=== PATIENT | male | born 1950 | race Caucasian/White ===

== ENCOUNTER 2016-12-19 11:20 | Day surgery (SDC) | payer MEDICARE ==
[~2016-12-19] VITALS: Ht 182.9 cm; Wt 100.0 kg
[2016-12-19] VITALS (10 sets, daily range): BP systolic 100–131; BP diastolic 69–78; PULSE 68–77; TEMP 97.9
[2016-12-19 12:22] LABS: HEMATOCRIT 42.1 % (42.0-52.0); HEMOGLOBIN 14.6 g/dl (13.5-18.0); MEAN CELL VOLUME 91 fl (80.0-100.0); MEAN CORPUSCULAR HEMOGLOBIN 31 pg (27.0-31.0); MEAN CORPUSCULAR HGB CONC 35 g/dl (33.0-37.0); MEAN PLATELET VOLUME 8.8 fl (7.4-10.4); PLATELET COUNT 176 K/mm3 (130-400); RED BLOOD COUNT 4.65 M/mm3 (4.20-5.60); REDCELL DISTRIBUTION WIDTH-CV 13.2 % (11.5-14.5); WHITE BLOOD COUNT 7.4 K/mm3 (4.8-10.8)
[2016-12-19 12:29] LABS: INR 1.1 (0.8-3.0); PROTHROMBIN TIME 11.9 SECONDS (9.7-12.8)
[2016-12-19 12:31] LABS: CALCIUM 9.4 mg/dL (8.4-10.2); CREATININE, serum 1.06 mg/dL (0.66-1.25); POTASSIUM 4.4 mmol/L (3.4-5.0)
[2016-12-19] MEDS ORDERED: NORVASC 10MG10 MG PO (12:32)
[2016-12-19] MEDS ORDERED: COREG12.5 MG PO (12:33)
[2016-12-19] MEDS ORDERED: CHONDROITIN SU400 MG PO (12:34)
[2016-12-19] MEDS ORDERED: FARXIGA5 PO (12:35)
[2016-12-19] MEDS ORDERED: LASIX 40MG TABL40 MG PO (12:35)
[2016-12-19] MEDS ORDERED: LEVEMIR FLEX100 U/ML SQ ×2 (12:36→12:37)
[2016-12-19] MEDS ORDERED: JANUMET 1000 MG1 TA1 PO (12:37)
[2016-12-19] MEDS ORDERED: L-LYSINE500 M1 PO (12:38)
[2016-12-19] MEDS ORDERED: K-DUR20 MEQ PO (12:39)
[2016-12-19] MEDS ORDERED: PRAVACHOL 20MG20 MG PO (12:39)
[2016-12-19] MEDS ORDERED: DIOVAN320 MG PO (12:40)
[2016-12-19] MEDS ORDERED: MULTI VITAMINS1 TAB PO (12:40)
[2016-12-19] MEDS ORDERED: ASPIRIN 81M81 MG/TA2 PO (12:41)
[2016-12-19] MEDS ORDERED: VITAMIN C500 MG PO (12:41)
== END 2016-12-19 18:33 | disposition home or self-care (01) ==
LOC: EUO 11:20
PROVIDERS: Internal Medicine Cardiovascular Disease
DX: I42.9 Cardiomyopathy, unspecified (principal); I27.2 Other secondary pulmonary hypertension; R06.02 Shortness of breath; R06.00 Dyspnea, unspecified; E11.9 Type 2 diabetes mellitus without complications; Z79.4 Long term (current) use of insulin; Z79.84 Long term (current) use of oral hypoglycemic drugs; E78.5 Hyperlipidemia, unspecified; I10 Essential (primary) hypertension; Z85.9 Personal history of malignant neoplasm, unspecified
CPT/HCPCS: C1760; J2250; J3010; Q9967

== ENCOUNTER 2019-03-25 06:53 | Day surgery (SDC) | payer MEDICARE ==
[2019-03-25] VITALS (16 sets, daily range): BP systolic 108–151; BP diastolic 65–85; PULSE 60–78; TEMP 97.5–97.7
[~2019-03-25] VITALS: Ht 182.9 cm; Wt 98.9 kg
[~2019-03-25 06:53] MED LIST: ASPIRIN 81M81 MG/TA2 PO; COREG12.5 MG PO; DIOVAN320 MG PO; FARXIGA5 PO; GLUCOSAMINE & C1 CA2 PO; JANUMET 1000 MG1 TA1 PO; K-DUR20 MEQ PO; L-LYSINE500 M1 PO; LASIX 40MG TABL40 MG PO; LEVEMIR FLEX100 U/ML SQ; MULTI VITAMINS1 TAB PO; NORVASC 10MG10 MG PO; PRAVACHOL 20MG20 MG PO; VITAMIN C500 MG PO
[2019-03-25 07:20] LABS: HEMATOCRIT 42.8 % (42.0-52.0); HEMOGLOBIN 14.8 g/dl (13.5-18.0); MEAN CELL VOLUME 91 fl (80.0-100.0); MEAN CORPUSCULAR HEMOGLOBIN 31 pg (27.0-31.0); MEAN CORPUSCULAR HGB CONC 35 g/dl (33.0-37.0); MEAN PLATELET VOLUME 8.5 fl (7.4-10.4); PLATELET COUNT 176 K/mm3 (130-400); RED BLOOD COUNT 4.72 M/mm3 (4.20-5.60); REDCELL DISTRIBUTION WIDTH-CV 13.1 % (11.5-14.5)
[2019-03-25 07:26] LABS: INR 0.9 (0.8-3.0)
[2019-03-25 07:32] LABS: CALCIUM 9.2 mg/dL (8.4-10.2); CREATININE, serum 1.06 (0.66-1.25); POTASSIUM 4.3 mmol/L (3.4-5.0)
[2019-03-25] MEDS ORDERED: MICARDIS80 MG PO (08:12)
[2019-03-25] MEDS ORDERED: FLONASEALLERGY NS (08:13)
[2019-03-25] MEDS ORDERED: ASTELIN NASAL S34 ML NS (08:14)
[2019-03-25] MEDS ORDERED: JARDIANCE10 PO (08:16)
--- NOTE | 2019-03-25 09:02 | NUR ---
ALL MEDICATIONS GIVEN VORB WITH MD. SEE MERGE FOR ALL MEDICATION ADMIN TIMES. SEE MERGE FOR ALL RASS ASSESSMENTS DURING AND POST PROCEDURE.
--- NOTE | 2019-03-25 09:49 | NUR ---
Patient transported back to [facility]. Patient hooked back up to monitoring equipment, VS stable. Bedside report given to BELGICA Mabry. Visualized right groin site with BELGICA Mabry. Site is clean, dry, and intact with no hematoma or oozing present. Groin site is soft and nontender. Patient denies any pain at this time. Pedal pulses +2 bilaterally. Discussed importance of keeping head down, leg flat with patient and family member. All questions addressed at this time. Bed in lowest and locked position, call light within reach.
--- NOTE | 2019-03-25 16:09 | NUR ---
Pt to procedure,report to Simon Simpson.
--- NOTE | 2019-03-25 16:40 | NUR ---
ALL MEDICATIONS GIVEN VORB WITH MD. SEE MERGE FOR ALL MEDICATION ADMIN TIMES. SEE MERGE FOR ALL RASS ASSESSMENTS DURING AND POST PROCEDURE. ANTIBIOTICS GIVEN PRIOR TO PROCEDURE, REFER TO MAR.
[2019-03-26 03:04] VITALS: BP 128/77; PULSE 89; TEMP 98.2
--- NOTE | 2019-03-26 04:30 | NUR ---
Pt calls and c/o incisional pain rated 7/10. Tylenol 650mg po given and refilled ice pack. Up to BR to void. Sling in place. Dressing to upper L chest and R groin clean, dry and intact. C-pap back on. Call light in reach.
[2019-03-26 06:33] LABS: BASO # 0.1 (0.0-0.2); BASO % 0.6 % (0.0-2.0); EOS # 0.2 (0.0-0.7); EOS % 2.2 % (0-4.0); GRAN # 6.5 (1.4-6.5); GRAN % 71.7 % (42.2-75.2); HEMATOCRIT 41.6 % (42.0-52.0); LYMPH # 1.3 (1.2-3.4); LYMPH % 14.6 % (20.0-51.0); MEAN CELL VOLUME 92 fl (80.0-100.0); MEAN CORPUSCULAR HEMOGLOBIN 31 pg (27.0-31.0); MEAN CORPUSCULAR HGB CONC 34 g/dl (33.0-37.0); MEAN PLATELET VOLUME 8.8 fl (7.4-10.4); MONO % 10.5 % (1.7-9.3); PLATELET COUNT 179 K/mm3 (130-400); RED BLOOD COUNT 4.51 M/mm3 (4.20-5.60); REDCELL DISTRIBUTION WIDTH-CV 13.4 % (11.5-14.5)
[2019-03-26 06:40] LABS: ALBUMIN 3.8 gm/dL (3.5-5.0); BILIRUBIN,TOTAL 0.5 mg/dL (0.0-1.0); CALCIUM 8.5 mg/dL (8.4-10.2); CREATININE, serum 0.97 (0.66-1.25); POTASSIUM 4.2 mmol/L (3.4-5.0)
[2019-03-26 07:26] VITALS: BP 117/70; PULSE 76; TEMP 96.4
--- NOTE | 2019-03-26 08:00 | NUR ---
INSISTION SITE C,D,I. GROIN SITE C,D,I. NO C/O PAIN THIS AM. STATED HE IS READY TO DISCHARGE. NO ISSUES OR CONSERNS VOICED.
--- NOTE | 2019-03-26 09:32 | NUR ---
Pt to room 317 at 1915 per bed after heart cath and pacemaker placed by Dr Melton. Dressings dry and intact to upper L chest and right groin. VS monitored post op and charted. Stable this shift. Up to the BR with SBA. Steady gait. Left arm in sling. Pulses strong with good movement of fingers. Req and given Tylenol 650mg for incisional pain with moderate relief obtained. Ice pack to upper Left chest as ordered. Pt refused the 90 units of Levemir at HS as he only ate a small amount of his meal. He only wanted 50 units of Levemer which was what was given as he said he knows what he needs to eat to get the 90. Call light remained within reach thru the night. Menu and phone given to pt at change of shift. Report given to BELGICA Dimas.
--- NOTE | 2019-03-26 10:23 | NUR ---
MEHRAN met with the patient and patient's daughter, Dorcas, to discuss discharge plan. The patient lives alone in [place]. He states Dorcas lives in [place]. He reports independence with ADLs and has a cane, walker, and CPAP from [facility]. The patient's PCP is Dr. Ralph Winter and he receives his medications at the [facility]. He reports no difficulties obtaining his meds. The patient does not have advanced directives in EMR, but he states that he does have them completed and at home. He states his daughter, Dorcas, is his DPOA-HC. The patient plans to return home upon discharge. No additional needs at this time.
[2019-03-26] MEDS ORDERED: COREG 25MG25 MG/TAB PO (11:00)
[2019-03-26] MEDS ORDERED: CEPHALEXIN500 M1 PO (11:01)
--- NOTE | 2019-03-26 12:07 | NUR ---
First visit from the block greaser. No needs right now.
--- NOTE | 2019-03-26 12:40 | NUR ---
PT DISCHARGE EDUCATION PROVIDED. IV AND TELE REMOVED. DENIED NEED FOR ESCORT OUT OF FACILITY. DAUGHTER AT BEDSIDE TO DRIVE HOME.
== END 2019-03-26 12:40 | disposition home or self-care (01) ==
LOC: COL.CAR 06:53 → MEDICAL 18:51 → COL.CAR 03-26 12:40
PROVIDERS: Internal Medicine Cardiovascular Disease
DX: I42.0 Dilated cardiomyopathy (principal); I47.2 Ventricular tachycardia; I25.10 Atherosclerotic heart disease of native coronary artery without angina pectoris
CPT/HCPCS: OP; C1760; C1769; C1894; C1900; C2621; J0690; J1644; J1815; J2250; J3010; J7030; Q9967